=== PATIENT | male | born 1985 | race Caucasian/White ===

== ENCOUNTER 2023-01-31 04:08 | Day surgery (SDC) | payer OTHER ==
[~2023-01-31] VITALS: Ht 177.8 cm; Wt 80.6 kg
[2023-01-31] VITALS (230 sets, daily range): BP systolic 87–156; BP diastolic 35–101
[2023-01-31 08:07] LABS: BASO% 0.3 % (0-3); EOS% 2.4 % (0-8); HEMATOCRIT 43.6 % (39.0-50.0); HEMOGLOBIN 14.7 g/dl (14.0-18.0); IMMATURE GRANULOCYTES 0.1 % (0.0-5.0); LYMPH% 26.8 % (15-41); MEAN CELL VOLUME 85.8 fL CALC (80.0-100.0); MEAN CORPUSCULAR HGB 28.9 pG CALC (26.0-32.0); MEAN CORPUSCULAR HGB CONC 33.7 g/dL CAL (32.0-36.0); NEUT# 5.97 thou/uL (1.82-7.42); NEUT% 63.4 % (42-76); RED BLOOD COUNT 5.08 mill/uL (4.70-6.10); RED CELL DISTRI WIDTH 12.2 % (11.5-15.5)
[2023-01-31 08:30] LABS: ALBUMIN 4.4 g/dL (3.2-5.0); ALKALINE PHOSPHATASE 62 u/l (38-126); ANION GAP 12 (6-22 (CALC)); BILIRUBIN, TOTAL 0.4 mg/dL (0.2-1.3); BUN 15 mg/dL (9-20); BUN/CREATININE RATIO 17 (12-20 (CALC)); CARBON DIOXIDE 28 mmol/l (22-30); CHLORIDE 101 mmol/l (95-108); CREATININE 0.9 mg/dL (0.7-1.3); GFR FOR AFR.AMER. > 60 ML/MIN (>=60 (CALC)); GFR OTHER RACES > 60 ML/MIN (>=60 (CALC)); POTASSIUM 4.2 mmol/l (3.5-5.1); SGOT/AST 23 u/l (17-59); SODIUM 137 mmol/l (137-146); TOTAL PROTEIN 7.2 g/dL (6.3-8.2)
[2023-01-31] MEDS ORDERED: CLONIDINE0.1 MG PO (13:56)
[2023-01-31] MEDS ORDERED: NALTREXONE50 MG PO (13:56)
[2023-01-31] MEDS ORDERED: KLONOPIN2 MG PO (13:57)
[2023-02-01 04:02] VITALS: BP 122/71
[2023-02-01 04:25] LABS: BASO% 0.1 % (0-3); HEMATOCRIT 41.2 % (39.0-50.0); HEMOGLOBIN 14.5 g/dl (14.0-18.0); IMMATURE GRANULOCYTES 0.3 % (0.0-5.0); LYMPH% 4.7 % (15-41); MEAN CELL VOLUME 82.4 fL CALC (80.0-100.0); MEAN CORPUSCULAR HGB CONC 35.2 g/dL CAL (32.0-36.0); MONO% 2.2 % (2-13); NEUT# 15.51 thou/uL (1.82-7.42); NEUT% 92.7 % (42-76); RED CELL DISTRI WIDTH 11.6 % (11.5-15.5)
[2023-02-01 04:48] LABS: ALBUMIN 4.2 g/dL (3.2-5.0); ALKALINE PHOSPHATASE 52 u/l (38-126); ANION GAP 14 (6-22 (CALC)); BUN 10 mg/dL (9-20); BUN/CREATININE RATIO 13 (12-20 (CALC)); CARBON DIOXIDE 29 mmol/l (22-30); CHLORIDE 103 mmol/l (95-108); CREATININE 0.8 mg/dL (0.7-1.3); GFR FOR AFR.AMER. > 60 ML/MIN (>=60 (CALC)); GFR OTHER RACES > 60 ML/MIN (>=60 (CALC)); MAGNESIUM 1.9 mg/dL (1.6-2.3); POTASSIUM 3.8 mmol/l (3.5-5.1); SGOT/AST 35 u/l (17-59); SODIUM 141 mmol/l (137-146)
[2023-02-01 04:54] LABS: BILIRUBIN, TOTAL 1.1 mg/dL (0.2-1.3)
[2023-02-01 07:50] VITALS: BP 122/56
[2023-02-01 16:11] VITALS: BP 129/73
== END 2023-02-01 18:14 | disposition home or self-care (01) | DRG 897 ==
LOC: ANR 04:08 → MS2 04:08 → ANR 10:00 → MS2 18:51 → ANR 02-01 18:14
PROVIDERS: ATTEND Anesthesiology Critical Care Medicine
DX: F11.20 Opioid dependence, uncomplicated (principal)
CPT/HCPCS: J0131; J2354; J3475